=== PATIENT | male | born 1960 | race Caucasian/White ===

== ENCOUNTER 2021-05-04 12:11 | Emergency (ER) | payer OTHER ==
[2021-05-04] MEDS ORDERED: HYDROmorphone 1 MG/ML CARPUJECT IM STA (12:36)
[2021-05-04] MEDS ORDERED: BUFFERED LIDOCAINE 10 ML SYRINGE SUBQ STA (12:37)
[2021-05-04] MEDS ORDERED: BACITRACIN ZINC OINT 1 PACKET TOP STA (12:37)
--- NOTE | 2021-05-04 12:40 | ED Physician Documentation ---
History of Present Illness - Stated complaint Stated Complaint: RIGHT FINGER LAC - Additonal information Additional information: 60-year-old male presents to the emergency department for evaluation of a right distal middle finger injury sustained prior to arrival when his finger got caught in a cemented mixer. His last tetanus was within 5 years. He has an avulsion of the nail as well as distal tip angulation. Review of Systems Constitutional: reports: Reviewed and negative Ears: reports: Reviewed and negative Nose: reports: Reviewed and negative Throat: reports: Reviewed and negative Cardiac: reports: Reviewed and negative Respiratory: reports: Reviewed and negative GI: reports: Reviewed and negative : reports: Reviewed and negative Skin: reports: Laceration (s) Musculoskeletal: reports: Joint pain (righ tmiddle finger) Neurologic: reports: Reviewed and negative PD PAST MEDICAL HISTORY - Present Medications Home Medications: Ambulatory Orders Medication Instructions Recorded Confirmed cephALEXin [Keflex] 500 mg PO Q6H #28 05/04/21 oxyCODONE [Roxicodone] 5 mg PO ONCE PRN #20 tablet 05/04/21 - Allergies Allergies/Adverse Reactions: Allergies Allergy/AdvReac Type Severity Reaction Status Date / Time No Known Drug Allergies Allergy Verified 05/04/21 12:18 PD ED PE EXPANDED - General General: Alert, In Pain - Extremities Extremities: Right finger(s) (macerated distal righ tmiddle finger with complete loss of the nail. Finger help in dital tip extension, unable to flex) Results - Vitals Vitals: Vital Signs - 24 hr 05/04/21 12:13 Temperature 36.6 C Heart Rate 80 Respiratory 156 H Rate Blood Pressure 142/78 H O2 Saturation 97 Oxygen O2 Source Room air - Rads (name of study) Right finger Radiology: Final report received (Comminuted fracture involving the distal tip of the right third finger with associated soft tissue injury) Procedures - Laceration (location) right distal middle finger Length in cm: 3 Wound type: Irregular, Into subcut fat, Into muscle, Heavily Contaminated, Exposure of bone Neurovascular status: Sensory intact, Motor intact Tendon involvement: Tendon Injury (flexor tendon injury) Anesthesia: Lidocaine 1% Wound preparation: Hibiclens, Irrigated copiously NS, Debrided moderately, Wound explored, debridement of wound edges (traumatic laceration/avulsion), Multiple flaps aligned, Extensive undermining Skin layer closure: Interrupted, Size #-0 - enter number (4), Sutures - enter # (4) Other: Patient tolerated well, No complications, Neurovascular intact, Tetanus UTD PD MEDICAL DECISION MAKING - ED course Complexity details: reviewed results, re-evaluated patient, d/w patient ED course: 60-year-old male presents the emergency department with a right distal middle finger avulsion and macerated wound when his finger got trapped in a supervisor concrete stone fabricating. Unfortunately he does have a flexor tendon injury as well as open fracture of the distal phalanx. The nail was completely avulsed from the bed a nd not salvageable. Wound was extensively irrigated and wound approximated with nylon sutures at the bedside. Patient was given Ancef and will be discharged with prescription cephalexin. Recommended follow-up with orthopedics. Emergent return precautions discussed for infection I am prescribing a short course of short-acting opioid pain medication for this patient. I have reviewed the patients [employer]OXES and no concerning findings were noted. I have discussed that the opioids are for short term therapy only, and will not be refilled from the ED. Departure - Departure Disposition: 01 Home, Self Care Clinical Impression: Open fracture of tuft of distal phalanx of finger Fingernail avulsion, complete Qualifiers: Encounter type: initial encounter Qualified Code(s): S61.309A - Unspecified open wound of unspecified finger with damage to nail, initial encounter Finger laceration involving tendon Qualifiers: Encounter type: initial encounter Qualified Code(s): S61.219A - Laceration without foreign body of unspecified finger without damage to nail, initial encounter Condition: Stable Record reviewed to determine appropriate education?: Yes Follow-Up: Daniel East MD [Provider Admit Priv/Credential] - Prescriptions: cephALEXin [Keflex] 500 mg PO Q6H #28 oxyCODONE [Roxicodone] 5 mg PO ONCE PRN #20 tablet PRN Reason: Pain Comments: Your suture should be removed in 10 days. In 24 hours you may remove the torie ssing wash gently with warm soap and water, apply any antibiotic ointment, non stick gauze and then the edgardo. Your tetanus is up-to-date. Fill the prescription for the antibiotics and begin taking as directed. Your wound is at high risk for infection Please attempt to keep your wound clean and dry. Do not submerge it in dirty dishwater or bath water. Return to the emergency department if you have any concerns of infection such as redness, fevers milky drainage increased pain. Please call the orthopedics department tomorrow to arrange follow up. This wound will likely take 6 to 8 weeks to heal. Unfortunately it also appears that you do have a tendon injury which is going to limit your ability to flex the distal tip of your finger. I am prescribing a short course of narcotic pain medication for you. These are potentially dangerous and addictive medications that should be used carefully. These medications may constipate you. Take an hcmn-jzk-rovoryf stool softener (docusate) twice daily with plenty of water while taking these medications. If you go 24 hours without a bowel movement, take bqjo-eok-[id number] miralax, per package instructions. Do not drink or drive while taking these medications. If you received narcotic or sedating medications while in the emergency department, do not drive for 24 hours. Store this medication in a safe, secure place and out of reach of children. It is a violation of federal law to give or sell this medication to another person or to use in a manner other than prescribed. The ED will not refill narcotic prescriptions, including prescriptions lost or stolen. To dispose of unwanted medications: 1. [facility] [address] in [place] has a medication drop box. They accept prescription medications (in pill form) Wednesday through Wednesday 9:00 a.m. to 5:00 p.m. 2. [facility] [employer] accepts prescription medications (in pill form only) for disposal year round. Call for more information. 3. Contact the [facility] for the next [facility] sponsored prescription drug collection event. , [phone], or [phone]; Note that many narcotic pain relievers also contain Tylenol/acetaminophen. Please ensure that your total dose of acetaminophen from all sources does not exceed 3 g (3000 mg) per day.
[2021-05-04] MEDS ORDERED: ceFAZolin 1 GM VIAL IM STA (12:48)
[2021-05-04] MEDS ORDERED: oxyCODONE 5 MG TABLET PO STA (13:31)
--- NOTE | 2021-05-04 13:36 | XRAY Report ---
PROCEDURE: Finger(s) RT INDICATIONS: caught in spray cementer TECHNIQUE: 3 views of the right middle finger were acquired. COMPARISON: None FINDINGS: Bones: There is a comminuted fracture seen involving the distal tip of the right third finger. No heather picious bony lesions. No additional fractures can be seen. Soft tissues: Associated soft tissue injury is seen. IMPRESSION: Comminuted fracture involving the distal tip of the right third finger, with associated soft tissue i njury. Reviewed by: Gildardo Vazquez MD on 05/04/2021 12:35 PM [email or web address] Approved by: Gildardo Vazquez MD on 05/04/2021 12:35 PM OLESYA Station ID: [id number]
[2021-05-04 14:14] VITALS: BP 137/88
== END 2021-05-04 14:14 | disposition home or self-care (01) ==
LOC: ED 12:11
DX: S62.632B Displaced fracture of distal phalanx of right middle finger, initial encounter for open fracture (principal); W23.0XXA Caught, crushed, jammed, or pinched between moving objects, initial encounter
CPT/HCPCS: 12052; 73140; 96372; 96374; 99283; A9270; J1170

== ENCOUNTER 2021-05-05 13:48 | Emergency (ER) | payer OTHER ==
[2021-05-05 13:55] VITALS: BP 133/80
--- NOTE | 2021-05-05 14:05 | ED Physician Documentation ---
PD HPI UPPER EXT INJURY - Stated complaint Stated Complaint: DRESSING CHANGE - Chief complaint Chief Complaint: Laceration - History obtained from History obtained from: Patient - Additonal information Additional information: Presents as requested for scheduled wound recheck and dressing change. Seen yesterday for a finger laceration. Pain is improved today compared to yesterday. He is taking the antibiotics. Review of Systems Constitutional: reports: Reviewed and negative Eyes: reports: Reviewed and negative Ears: reports: Reviewed and negative PD PAST MEDICAL HISTORY - Past Medical History Past Medical History: No - Past Surgical History Past Surgical History: No - Present Medications Home Medications: Ambulatory Orders Medication Instructions Recorded Confirmed cephALEXin [Keflex] 500 mg PO Q6H #28 05/04/21 oxyCODONE [Roxicodone] 5 mg PO TID PRN #20 tablet 05/04/21 - Allergies Allergies/Adverse Reactions: Allergies Allergy/AdvReac Type Severity Reaction Status Date / Time No Known Drug Allergies Allergy Verified 05/05/21 13:55 - Social History Does the pt smoke?: No Smoking Status: Never smoker Does the pt drink ETOH?: No Does the pt have substance abuse?: No - Immunizations Immunizations are current?: Yes PD ED PE NORMAL - Vitals Vital signs reviewed: Yes - General General: Alert and oriented X 3, No acute distress - HEENT HEENT: PERRL, EOMI - Extremities Extremities: Other (The wound is slightly macerated but otherwise clean and dry. He has a complete fingernail avulsion. It is hemostatic. The entire tip of the finger is quite tender. No signs of infection.) - Neuro Neuro: Alert and oriented X 3, Normal speech Results - Vitals Vitals: Vital Signs - 24 hr 05/05/21 13:51 Temperature 36.5 C Heart Rate 86 Respiratory 16 Rate Blood Pressure 133/80 H O2 Saturation 97 Oxygen O2 Source Room air PD MEDICAL DECISION MAKING - ED course ED course: The wound was cleansed, and then dressed with Xeroform and tube gauze and he Was counseled on ongoing wound care. Departure - Departure Disposition: 01 Home, Self Care Clinical Impression: Open fracture of tuft of distal phalanx of finger Fingernail avulsion, complete Qualifiers: Encounter type: subsequent encounter Qualified Code(s): S61.309D - Unspecified open wound of unspecified finger with damage to nail, subsequent encounter Finger laceration involving tendon Qualifiers: Encounter type: subsequent encounter Qualified Code(s): S61.219D - Laceration without foreign body of unspecified finger without damage to nail, subsequent encounter Condition: Good Record reviewed to determine appropriate education?: Yes Comments: For ongoing wound care, you can briefly wash it with soap and water once a day. Then apply bacitracin ointment which is greasy and available [id number]-[id number]. Then apply a nonstick dressing such as Telfa, then a loose wrap from gauze and then an apex finger splint available [id number]-[id number] right aid. Return for new or worsening symptoms. Elevate as needed. You will likely need to do ongoing wound care for several weeks. Otherwise follow the nurse practitioners follow-up instructions given to yesterday.
== END 2021-05-05 14:31 | disposition home or self-care (01) ==
LOC: ED 13:48
DX: Z48.01 Encounter for change or removal of surgical wound dressing (principal)

== ENCOUNTER 2021-05-09 07:50 | Emergency (ER) | payer OTHER ==
[2021-05-09 08:05] VITALS: BP 141/90
[2021-05-09] MEDS ORDERED: DOXYCYCLINE 100 MG TABLET PO STA (08:28)
--- NOTE | 2021-05-09 08:31 | ED Physician Documentation ---
PD HPI WOUND RECHECK - Stated complaint Stated Complaint: FINGER INJ COMPLICATIONS - Chief complaint Chief Complaint: Wound - Histroy obtained from History obtained from: Patient - History of Present Illness Location: Left Hand (tip of middle finger crush/lac 5 days ago, with suture repair here and referred to Ortho. Had not called for appt yet. Had wound echeck 3 days ago and was doing okay. Has had some increased pain and swelling proximal to the wound in finger. Also feeling some muscle stiffness in forearm.) Timing - onset: How many days ago (5 days since injury; has had increased pain 2 days, but also trying to reduce pain med use.) Associated symptoms: Swelling, Pain. No: Fever, Drainage Recently seen: Emergency Dept Review of Systems Constitutional: denies: Fever, Chills Neurologic: denies: Focal weakness, Numbness PD PAST MEDICAL HISTORY - Past Medical History Cardiovascular: None Endocrine/Autoimmune: None - Past Surgical History Past Surgical History: No - Present Medications Home Medications: Ambulatory Orders Medication Instructions Recorded Confirmed cephALEXin [Keflex] 500 mg PO Q6H #28 05/04/21 05/09/21 oxyCODONE [Roxicodone] 5 mg PO TID PRN #20 tablet 05/04/21 05/09/21 Doxycycline Hyclate 100 mg PO BID #10 05/09/21 oxyCODONE [Roxicodone] 5 mg PO Q4-6H PRN #12 tablet 05/09/21 - Allergies Allergies/Adverse Reactions: Allergies Allergy/AdvReac Type Severity Reaction Status Date / Time No Known Drug Allergies Allergy Verified 05/09/21 08:04 - Social History Does the pt smoke?: No Smoking Status: Never smoker Does the pt drink ETOH?: No Does the pt have substance abuse?: No - Immunizations Immunizations are current?: Yes PD ED PE NORMAL - Vitals Vital signs reviewed: Yes - General General: Alert and oriented X 3, No acute distress, Well developed/nourished - Derm Derm: Normal color, Warm and dry - Extremities Extremities: Other (left middle finger tip with sutured wound with some early scabbing. No drainage nor purulence. There is some swelling proximal part of finger but not red. No tenderness to palpation in palm nor forearm. No red str eaks. ) Results - Vitals Vitals: Vital Signs - 24 hr 05/09/21 08:00 Temperature 36.5 C Heart Rate 81 Respiratory 16 Rate Blood Pressure 141/90 H O2 Saturation 97 Oxygen O2 Source Room air PD MEDICAL DECISION MAKING - ED course Complexity details: considered differential (has some swelling of finger proximal to injury so concern for infection developing despite Keflex. He has some pain in forearm but not tender; I do not get sense of tenosynovitis but just muscular stiffness of wrist. Discussed with him the concern/symptoms to watch for. ), d/w patient Departure - Departure Disposition: 01 Home, Self Care Clinical Impression: Encounter for wound re-check Condition: Stable Record reviewed to determine appropriate education?: Yes Follow-Up: ALYSSA CHEN MD [Primary Care Provider] - Prescriptions: Doxycycline Hyclate 100 mg PO BID #10 oxyCODONE [Roxicodone] 5 mg PO Q4-6H PRN #12 tablet PRN Reason: Pain Comments: Continue with the current wound care of cleaning soap and water gently twice daily and applying antibiotic ointment lightly. Keep it dressed to protect the area. I would continue the cephalexin antibiotic. To that add doxycycline twice daily to broaden the antibiotic coverage. I would anticipate improvement in the swelling and discomfort over the next couple of days. Recheck if not improved well and return if worsening. Continue Tylenol or ibuprofen for mild pain and oxycodone for worse pain. Same opioid instructions apply as with your initial prescription. Be careful of driving and constipation, lightheadedness, etc. Discharge Date/Time: 05/09/21 08:43
== END 2021-05-09 08:43 | disposition home or self-care (01) ==
LOC: ED 07:50
DX: M79.645 Pain in left finger(s) (principal); M79.89 Other specified soft tissue disorders; S61.213D Laceration without foreign body of left middle finger without damage to nail, subsequent encounter; X58.XXXD Exposure to other specified factors, subsequent encounter; Z48.00 Encounter for change or removal of nonsurgical wound dressing
CPT/HCPCS: 99282; 99283; A9270

== ENCOUNTER 2021-05-18 08:31 | Emergency (ER) | payer OTHER ==
[2021-05-18 09:03] VITALS: BP 131/85
--- NOTE | 2021-05-18 09:43 | ED Physician Documentation ---
PD HPI WOUND RECHECK - Stated complaint Stated Complaint: STITCHES REMOVAL - Chief complaint Chief Complaint: General - Histroy obtained from History obtained from: Patient, Family - History of Present Illness Location: Right Hand Timing - onset: How many days ago (14) Associated symptoms: Redness, Swelling Similar symptoms before: Diagnosis (crush injury to finger with distal infection) Recently seen: Emergency Dept - Additional information Additional information: 60-year-old male who crushed his finger in a placement director 2 weeks ago had repair done to the fingertip and he did develop a infection in the distal portion of the finger and was initially on some Keflex that was changed to doxycycline which made a marked difference. The patient is been off the doxycycline for the past 3 days he is now developed a tiny bit of swelling again and he is in here for evaluation and suture removal. Review of Systems Constitutional: denies: Fever Respiratory: denies: Cough GI: denies: Vomiting PD PAST MEDICAL HISTORY - Past Medical History Cardiovascular: None Endocrine/Autoimmune: None - Past Surgical History Past Surgical History: No - Present Medications Home Medications: Ambulatory Orders Medication Instructions Recorded Confirmed cephALEXin [Keflex] 500 mg PO Q6H #28 05/04/21 05/09/21 oxyCODONE [Roxicodone] 5 mg PO TID PRN #20 tablet 05/04/21 05/09/21 Doxycycline Hyclate 100 mg PO BID #10 05/09/21 oxyCODONE [Roxicodone] 5 mg PO Q4-6H PRN #12 tablet 05/09/21 Doxycycline Hyclate 100 mg PO BID #10 tab 05/18/21 - Allergies Allergies/Adverse Reactions: Allergies Allergy/AdvReac Type Severity Reaction Status Date / Time No Known Drug Allergies Allergy Verified 05/09/21 08:04 - Social History Does the pt smoke?: No Smoking Status: Never smoker Does the pt drink ETOH?: No Does the pt have substance abuse?: No - Immunizations Immunizations are current?: Yes PD ED PE NORMAL - Vitals Vital signs reviewed: Yes (hypertensive ) - General General: Alert and oriented X 3, No acute distress, Well developed/nourished - HEENT HEENT: Atraumatic, PERRL, EOMI - Respiratory Respiratory: No respiratory distress - Derm Derm: Normal color, Warm and dry, No rash - Extremities Extremities: Other (The tip of the left middle finger is covered in escar. There is no evidence of infection from the wound itself. There is erythema surrounding the cuticle and not extending up the dorsum of the hand. There is tenderness to the flexor tendon. He is able to extend the finger fully but has pain with.) - Neuro Neuro: Alert and oriented X 3, flavoring maker 2-12 intact, No motor deficit, No sensory deficit, Normal speech Eye Opening: Spontaneous Motor: Obeys Commands Verbal: Oriented GCS Score: 15 - Psych Psych: Normal mood, Normal affect Results - Vitals Vitals: Vital Signs - 24 hr 05/18/21 08:58 Temperature 36.5 C Heart Rate 83 Respiratory 15 Rate Blood Pressure 131/85 H O2 Saturation 99 Oxygen O2 Source Room air PD MEDICAL DECISION MAKING - ED course Complexity details: considered differential, d/w patient ED course: 60-year-old male with a healing distal crush injury to his left middle finger has some persistent erythema associated with this and felt that the doxycycline really help with the erythema and tenderness previously. His sutures are remove d. The wound appears to be healing there is mild erythema indicating a persistent superficial infection and we will place the patient back on the doxycycline.. Departure - Departure Disposition: 01 Home, Self Care Clinical Impression: Visit for suture removal Infected finger laceration Qualifiers: Encounter type: subsequent encounter Qualified Code(s): S61.219D - Laceration without foreign body of unspecified finger without damage to nail, subsequent encounter Condition: Stable Instructions: ED Wound Check Laceration FU Infec Follow-Up: Daniel East MD [Provider Admit Priv/Credential] - Prescriptions: Doxycycline Hyclate 100 mg PO BID #10 tab Comments: Keep the wound clean and dry it is okay to shower and get the finger wet, pat the area dry. Protect the area from contusion and abrasion. Wear the finger protector if you are working. Reduce your activity related to the right hand is much as possible over the next 2 weeks. Discharge Date/Time: 05/18/21 10:01
== END 2021-05-18 10:01 | disposition home or self-care (01) ==
LOC: ED 08:31
DX: S61.213D Laceration without foreign body of left middle finger without damage to nail, subsequent encounter (principal); L08.9 Local infection of the skin and subcutaneous tissue, unspecified; W31.89XD Contact with other specified machinery, subsequent encounter
CPT/HCPCS: 99282; 99283